=== PATIENT | female | born 1960 | race Caucasian/White ===

== ENCOUNTER 2023-11-18 07:23 | Emergency (ER) | payer MEDICAID, OTHER, SELFPAY ==
--- NOTE | 2023-11-18 | ECG_ITS ---
Test Reason : chest pain Blood Pressure : / mmHG Vent. Rate : 093 BPM Atrial Rate : 093 BPM P-R Int : 164 ms QRS Dur : 072 ms QT Int : 372 ms P-R-T Axes : 041 041 051 degrees QTc Int : 462 ms Sinus rhythm with frequent Premature ventricular complexes in a pattern of bigeminy Otherwise normal ECG No previous ECGs available Referred By: Generic ED Physician Electronically Signed By:Kike Salinas
--- NOTE | ~2023-11-18 | CT_ITS ---
EXAMINATION: CT HEAD WITHOUT CONTRAST CLINICAL INFORMATION: Headache COMPARISON: None available. TECHNIQUE: Contiguous axial imaging was performed from the skull base to vertex without intravenous administration of contrast. This CT examination was performed using dose optimization techniques as appropriate, variously including the following: *Automated exposure control *Adjustment of mA and/or kV according to patient size (this includes techniques or standardized protocols for targeted exams where dose is matched to indication/reason for exam; i.e. extremities or head) *Use of iterative reconstruction technique DLP: 680 mGy-cm FINDINGS: Ventricles, sulci and cisterns are dilated. Bilateral frontal deep white matters show abnormal decrease in attenuation, extending to anterior left external capsule. There is no midline shift, no abnormal intra- or extra- axial fluid accumulation. Begum and white matter differentiation is normal. Bone window images show no evidence of skull fracture. CT/CT head/brain wo IV con IMPRESSION: 1. Mild age related cerebral atrophy and bilateral frontal ischemic white matter disease compatible with microangiopathy. 2. No intracranial hemorrhage or skull fracture is seen. 3. No evidence of space occupying lesion could be found. 4. The current plain CT scan of the brain shows no diagnostic evidence of acute cerebral infarction.
--- NOTE | ~2023-11-18 | XR_ITS ---
EXAMINATION: XR CHEST CLINICAL INFORMATION: Chest pain. COMPARISON: None available. TECHNIQUE: 2 views of the chest were obtained. FINDINGS: The lungs are well expanded. There is diffuse reticular interstitial pattern. Cardiac silhouette appears enlarged. No pleural effusion. Thoracic aorta is tortuous and ectatic. There is prominence of the paratracheal soft tissues. Age-indeterminate compression fracture of T12. XR/XR chest 2V IMPRESSION: Diffuse interstitial prominence. This may be on a chronic basis. Prominence of the paratracheal soft tissues. No prior studies available for comparison. Consider follow-up imaging. Age-indeterminate compression fracture of T12.
[2023-11-18 07:44] VITALS: BP 156/72; PULSE 83; RESP 18; TEMP 36.8; BMI 35.5
[2023-11-18 07:44] LABS: MANUAL DIFF FLAG NO
--- NOTE | 2023-11-18 07:44 | ED_ITS ---
HPI - Chest Pain General Chief Complaint: Chest Pain Stated Complaint: chest pressure high bp Time Seen by Provider: 11/18/23 07:38 Source: patient, family and telegraph plant maintainer Mode of arrival: ambulatory Limitations: no limitations and language barrier History of Present Illness HPI narrative: 63-year-old female Serbian speaking presents to the emergency department with multiple complaints. Patient states that she is here because she has headache and chest pain that she has blood pressure and she has noticed her blood pressure has been elevated as well as some episodes of dizziness she has had some trouble walking when she has her blood pressure elevated she feels dizzy when her blood pressure is elevated and her headache comes on when she has this. She has been taking ibuprofen with relief. She states [place] been in the [place] 2 [place] unable to establish with a doctor she denies any falls injuries she denies use chills cough shortness of breath she has been eating and drinking normally Related Data Allergies Allergy/AdvReac Type Severity Reaction Status Date / Time none AdvReac Unknown Itchy Eyes Uncoded 11/18/23 07:45 Review of Systems 2 Review of Systems: Review of systems: hypervigilan polypositive review of symptoms General: Patient denies any fever chills recent illness - fall 4 months ago Musculoskeletal: Denies back pain or body aches or other injuries HEENT: intermittent dizziness, headache, denies runny nose, ear pain Respiratory: denies shortness of breath, cough Cardiovascular: chest pain or palpitations : denies dysuria, frequency Abdomen: no nausea vomiting denies abdominal pain Extremities: no swelling, no pain Skin: no diaphoresis Yes all other systems are reviewed and are negative [facility] Social History Social History Smoked in Last 30 Days: No Use of substances other than those prescribed or required for medical reasons: No Advance Directives: No Do you have a plan to hurt others: No Plan Patient : No Physical Exam 2 Vital Signs: Vital Signs: Last Vital Signs Temp 98.2 F 11/18/23 07:44 Pulse 83 11/18/23 07:44 Resp 18 11/18/23 07:44 BP 156/72 H 11/18/23 07:44 O2 Del Method Room Air 11/18/23 07:44 BMI result Body Mass Index 35.5 Neurological exam: CN II- XII tested. Patient is alert and oriented to person place and time. Patient has no dysphagia or dysarthia, denies good vision in all four vision gimenez no nystagmus on exam, good strength to upper and lower extremities with normal reflexes to brachioradialis, wrist, patella and achilles. Negative romberg, good finger to nose and heel to miranda. General: Well-appearing well-nourished in no signs of distress HEENT: Normocephalic atraumatic Neck: No signs of JVD, no masses no tenderness or lymphadenopathy Cardiovascular: Regular rate and rhythm Respiratory: Clear to auscultation bilaterally Abdomen: Soft nontender no masses Extremities: Normal pedal pulses no signs of edema Skin: Dry warm no rashes Back: No tenderness full ROM NIH Stroke Scale Internal: Initial- Upon Arrival Level of Consciousness: Alert Level of Consciousness Questions: Answers both questions correctly Level of Consciousness Commands: Performs both tasks correctly Best Gaze: Normal Visual: No visual loss Facial Palsy: Normal Motor Arm (Right): No drift Motor Arm (Left): No drift Motor Leg (Right): No drift Motor Leg (Left): No drift Limb Ataxia: Absent Sensory: Normal Best Language: No aphasia Dysarthia: Normal Extinction and Inattention: No abnormality Score: 0 Course Course Course Narrative: CT head labs and x-ray were all unremarkable. Patient looks well she is complaining some chills at this time which I think is likely related to the IV fluids that she has received. I did explain this to the patient through telegraph plant maintainer as well as talked to her daughter who was called on the phone. I do feel comfortable discharging the patient home I will give her a list of primary care doctors for follow-up they are happy with the plan to go home. Medications Administered Discontinued Medications Generic Name Dose Route Start Last Admin Trade Name Mia PRN Reason Stop Dose Admin Aspirin 324 mg 11/18/23 08:42 11/18/23 09:20 Aspirin 81 Mg Tab.Chew PO 11/18/23 08:43 324 mg ONCE ONE Administration Diphenhydramine HCl 25 mg 11/18/23 08:42 11/18/23 09:17 Diphenhydramine Hcl 50 Mg/Ml Vial IVPUSH 11/18/23 08:43 25 mg ONCE ONE Administration Sodium Chloride 1,000 mls @ 999 mls/hr 11/18/23 08:45 11/18/23 09:15 Ns IV 11/18/23 09:45 999 mls/hr .Q1H1M JALYN Administration Metoclopramide HCl 10 mg 11/18/23 08:42 11/18/23 09:18 Metoclopramide Hcl 10 Mg/2 Ml Vial IVPUSH 11/18/23 08:43 10 mg ONCE ONE Administration Prednisone 60 mg 11/18/23 08:42 11/18/23 09:20 Prednisone 20 Mg Tablet PO 11/18/23 08:43 60 mg ONCE ONE Administration Medical Decision Making Medical Decision Making [facility] Narrative: Patient has been getting her medications from [facility] the pain is reproduced her chest wall she may or may not have a headache at this time I will give patient aspirin prednisone fluids Reglan and Benadryl. I do feel like a lot of these are chronic problems in her blood pressure has been elevated for some time she states the chest pain has been going on for a long time as well but got worse over last 24 hours I did discuss with since it is reproducible this could be as simple as chest wall pain for that reason I did give the prednisone to help with a costochondritis type pain. Aspirin fluids and Reglan should help with her headache. Blood pressure is managed well at this time. While she did complain of dizziness and trouble walking she has a completely normal neuro exam of seen her ambulate without any issue Differential Diagnosis Differential Diagnoses: The differential diagnosis associated with the presentation includes Chest pain headache migraines ACS chest wall pain dehydration electrolyte abnormality medication noncompliance hypertension Admission/Observation Consideration of admission/observation: Escalation of care including admission/observation considered Lab Data [facility] Lab Attestation statement: I reviewed the patient's lab results. 11/18/23 07:40 11/18/23 07:40 Labs: Lab Results 11/18/23 Range/Units 07:40 WBC 9.8 (4.8-10.8) X10*3/uL RBC 4.35 (4.20-5.50) X10*6/uL Hgb 13.4 (12.0-16.0) g/dl Hct 39.8 (37.0-47.0) % MCV 91.5 (80.0-98.0) fL MCH 30.8 (27.0-33.0) pg MCHC 33.7 (31.0-35.0) g/dl RDW 12.5 (11.0-16.0) % Plt Count 158 L (160-400) X10*3/uL MPV 12.3 (9.4-12.3) fL Immature Gran % (Auto) 0.5 H (0.0-0.4) % Neut % (Auto) 66.5 (45-73) % Lymph % (Auto) 25.4 (20-40) % Talbot % (Auto) 6.3 (2-11) % Eos % (Auto) 1.0 (0-4) % Baso % (Auto) 0.3 (0-2) % Lymph # (Auto) 2.5 (1.2-4.9) X10*3/uL Talbot # (Auto) 0.6 (0.1-1.2) X10*3/uL Eos # (Auto) 0.1 (0.0-0.4) X10*3/uL Baso # (Auto) 0.0 (0.0-0.2) X10*3/uL Abs Immat Gran (auto) 0.05 H (0.00-0.03) X10*3/uL Absolute Neuts (auto) 6.5 (2.0-8.3) x10*3/uL Absolute Nucleated RBC 0.000 (0.0-0.012) X10*3/uL Nucleated RBC % (auto) 0.0 (0.0-0.2) /100WBC Sodium 141 (135-145) mmol/L Potassium 4.0 (3.3-5.1) mmol/L Chloride 106 (96-108) mmol/L Carbon Dioxide 27 (22-29) mmol/L Anion Gap 12 (12-20) BUN 16 (9-16) mg/dL Creatinine 0.82 (0.5-1.4) mg/dL Estim Creat Clear Calc 71.4 Estimated GFR > 60 Random Glucose 106 (60-115) mg/dL Calcium 9.4 (8.4-10.2) mg/dL Total Bilirubin 0.4 (0.0-1.0) mg/dL AST 15 (5-31) U/L ALT 14 (0-31) U/L Alkaline Phosphatase 114 (39-117) U/L Troponin I High Sens < 2.7 (<3.5-17.0) ng/L Total Protein 7.7 (6.5-8.0) g/dL Albumin 4.1 (3.5-5.0) g/dL Independent Interpretation I performed an independent interpretation of an: EKG, Plain X-Ray and CT Scan Interpretation: Rate 93 bigeminy no previous previous for comparison no signs of ischemia interpreted by me Radiology Impression Discussion of test interpretation with radiology: I have reviewed the radiologist's reading. External Record Review External record reviewed: Inpatient record, Office record and Outpatient record Chronic Conditions Patient?s care impacted by: Hypertension Social Determinants Patient?s care significantly limited by Social Determinants of Health including: Inadequate housing and Other Social Determinant of Health Core Measures AMI core measures followed: Yes Scores Heart Score History: -0- slightly suspicious ECG: -0- normal Age: -1- >45 - <65 Risk factory: -1- 1 or 2 risk factors Troponin: -0- < or = normal limit Score: 2 Risk: 1.7% Discharge Plan Discharge Clinical Impression: Chest pain, Headache, Dizziness, Costalchondritis Patient Disposition: Home, Self-Care Instructions: Chest Pain (DC), Costochondritis (ED) Additional Instructions: You were seen today in emergency department for chest pain. As well as a headache. You had CT scan of the head x-ray of the chest and blood work which were all normal. I do think this could be related to her blood pressure. I do think it is worthwhile to call and establish with a doctor. If you have any other concerns please do not hesitate to come back to emergency department Print Language: Serbian
[2023-11-18 07:48] LABS: Basophils Percent Auto 0.3 % (0-2); Eosinophils Absolute Auto 0.1 X10*3/uL (0.0-0.4); Hematocrit 39.8 % (37.0-47.0); Hemoglobin 13.4 g/dl (12.0-16.0); Imm Gran Abs Auto 0.05 X10*3/uL (0.00-0.03); Imm Gran Pct Auto 0.5 % (0.0-0.4); Lymphocytes Absolute Auto 2.5 X10*3/uL (1.2-4.9); Lymphocytes Percent Auto 25.4 % (20-40); Mean Corpuscular HGB Conc 33.7 g/dl (31.0-35.0); Mean Corpuscular Hemoglobin 30.8 pg (27.0-33.0); Mean Corpuscular Volume 91.5 fL (80.0-98.0); Mean Platelet Volume 12.3 fL (9.4-12.3); Monocytes Absolute Auto 0.6 X10*3/uL (0.1-1.2); Monocytes Percent Auto 6.3 % (2-11); Neutrophils Absolute Auto 6.5 x10*3/uL (2.0-8.3); Neutrophils Percent Auto 66.5 % (45-73); Platelet Count 158 X10*3/uL (160-400); Red Blood Count 4.35 X10*6/uL (4.20-5.50); Red Cell Distribution Width 12.5 % (11.0-16.0); White Blood Count 9.8 X10*3/uL (4.8-10.8)
[2023-11-18 08:20] LABS: Alanine Aminotransferase 14 U/L (0-31); Albumin Level 4.1 g/dL (3.5-5.0); Alkaline Phosphatase 114 U/L (39-117); Anion Gap 12 (12-20); Aspartate Amino Transferase 15 U/L (5-31); Bilirubin Total 0.4 mg/dL (0.0-1.0); Blood Urea Nitrogen 16 mg/dL (9-16); Calcium 9.4 mg/dL (8.4-10.2); Carbon Dioxide 27 mmol/L (22-29); Chloride 106 mmol/L (96-108); Creatinine Clr Calc Pharmacy 71.4; Estimated Glomerular Filt Rate > 60; Glucose Random 106 mg/dL (60-115); Sodium 141 mmol/L (135-145); Total Protein 7.7 g/dL (6.5-8.0)
[2023-11-18 08:24] LABS: Troponin-I High Sensitivity < 2.7 ng/L (<3.5-17.0)
[2023-11-18] MEDS: 0.9 % Sodium Chloride 1,000 ML 999 ML IV (09:15)
[2023-11-18] MEDS: diphenhydrAMINE HCL 50 MG/ML VIAL 25 MG IVPUSH (09:17)
[2023-11-18] MEDS: Metoclopramide HCl 10 MG/2 ML VIAL IVPUSH (09:18)
[2023-11-18] MEDS: Aspirin 81 MG TAB.CHEW 324 MG PO (09:20)
[2023-11-18] MEDS: predniSONE 20 MG TABLET 60 MG PO (09:20)
[2023-11-18 10:42] VITALS: BP 150/86; PULSE 85; RESP 18; TEMP 36.8; O2SAT 98
== END 2023-11-18 10:43 | disposition home or self-care (01) ==
PROVIDERS: Emergency Provider Student in an Organized Health Care Education/Training Program
DX: R07.9 Chest pain, unspecified (principal); R51.9 Headache, unspecified; R42 Dizziness and giddiness; M94.0 Chondrocostal junction syndrome [Tietze]
CPT/HCPCS: 36415; 70450; 71046; 80053; 84484; 85025; 93005; 96374; 96375; 99284; 99285; J1200; J2765

== ENCOUNTER → 2023-11-18 07:28 | Outpatient (BNV) | payer SELFPAY | PROVIDERS: Emergency Provider Student in an Organized Health Care Education/Training Program; Visit Provider Internal Medicine Cardiovascular Disease | DX: R07.9 Chest pain, unspecified (principal) | CPT/HCPCS: 93010 ==

== ENCOUNTER 2024-11-18 23:28 | Inpatient (IN) | payer MEDICAID, OTHER, SELFPAY ==
--- NOTE | ~2024-11-18 | CT_ITS ---
CLINICAL HISTORY: facial droop, L arm drift CT head without contrast Comparison: CT/NM/SR - CT HEAD WITHOUT IV CONTRAST - 11/18/23 08:52 EDT Findings: No intra-axial mass, midline shift, hydrocephalus, or acute hemorrhage. Mild cerebral atrophy. Low attenuation in the periventricular white matter consistent with chronic small-vessel ischemic gliosis. There is no sinus or mastoid fluid. The orbits are within normal limits. There is no acute fracture. Wall calcifications of the carotid siphons present. IMPRESSION: 1. No acute intracranial findings. This document has been electronically signed by: Ermias Gonzalez MD on 11/19/2024 00:30:21
--- NOTE | ~2024-11-18 | MR_ITS ---
EXAMINATION: MR BRAIN WITHOUT IV CONTRAST HISTORY: CVA TECHNIQUE: Sagittal T1 and FLAIR, and axial T1, FLAIR, T2, gradient echo, and diffusion weighted MR images of the brain were obtained. COMPARISON: Correlation is made with an unenhanced head CT dated 11/19/2024. FINDINGS: The pituitary is normal in size. The cerebellar tonsils are normally located. There is diffuse prominence of the ventricular system and cortical sulci, consistent with atrophy. Periventricular and subcortical white matter hyperintensities are noted on the FLAIR and T2-weighted images which are nonspecific, but often seen in the setting of small vessel ischemic disease. There is a small focus of restricted diffusion in the right frontoparietal region consistent with an acute infarct. Additional punctate foci of restricted diffusion are noted in the right frontal and parietal lobes. There is no mass effect or midline shift. No intra or extra-axial fluid collections are identified. Normal vascular flow voids are noted in the basilar and carotid arteries. The visualized paranasal sinuses are clear. MR/MR head/brain wo con IMPRESSION: Small acute right frontoparietal infarcts. [facility] on 11/19/2024 at 1:37 PM. Electronically signed by: Tavo Garcia MD 11/19/2024 01:39 PM EDT
--- NOTE | ~2024-11-18 | US_ITS ---
EXAMINATION: BILATERAL CAROTID ULTRASOUND WITH DOPPLER HISTORY: possible CVA, ABN CTA COMPARISON: Correlation is made with a CT angiogram of the neck dated 11/19/2024. TECHNIQUE: Real time and Color and Spectral doppler ultrasonography of the carotid and vertebral arteries was performed in multiple planes. FINDINGS: There is a moderate amount of plaque proximal right internal carotid artery. No significant plaque is seen on the left. VERTEBRAL FLOW DIRECTION: Antegrade bilaterally. PEAK SYSTOLIC VELOCITIES (in cm/sec): RIGHT: CCA: Prox: 61.0 Dist: 61.5 ICA: Prox: 96.7 Mid: 108 Dist: 94.1 ICA/CCA Ratio: 1.76 ECA: 168 Peak ICA end diastolic velocity (EDV): 38.4 LEFT: CCA: Prox: 103 Dist: 93.2 ICA: Prox: 72.4 Mid: 114 Dist: 132 ICA/CCA Ratio: 1.28 ECA: 90.1 Peak ICA end diastolic velocity (EDV): 56.4 US/US carotid duplex BI IMPRESSION: Findings consistent with 50-79% stenosis of the right internal carotid artery. No significant stenosis is seen on the left. Electronically signed by: Tavo Garcia MD 11/20/2024 08:17 AM EDT
--- NOTE | ~2024-11-18 | CT_ITS ---
CLINICAL HISTORY: facial droop, L arm drift CT angiography head and neck with contrast. 3D Postprocessing. Comparison: None provided Findings: There is motion artifact in the region of the carotid bulbs. Bilateral internal carotid arteries have a retropharyngeal course. The right cervical carotid artery is patent. Dense calcification of the right carotid bulb is present with resultant severestenosis which is not well evaluated due to motion artifact. Left cervical carotid artery is patent. No stenosis of the left internal carotid artery. Bilateral vertebral arteries are widely patent without stenosis. Intracranial arteries are patent. No aneurysm, dissection, hemodynamically significant stenoses, or occlusion. No abnormal intracranial enhancement. The visualized thyroid gland is unremarkable. No cervical mass or fluid collection. Lung apices clear. No acute fracture. IMPRESSION: 1. No large vessel occlusion of the intracranial arteries. 2. Severe stenosis of the right internal carotid artery at the bulb secondary to calcified plaque. Measurement of the stenosis is difficult to estimate due to patient motion. This document has been electronically signed by: Erimas Gonzalez MD on 11/19/2024 00:59:04
[2024-11-18 23:50] VITALS: BP 142/70; PULSE 83; RESP 20; TEMP 36.6; O2SAT 95; BMI 35.8
[2024-11-19] VITALS (9 sets, daily range): BP systolic 104–135; BP diastolic 57–80; PULSE 71–89; RESP 13–25; TEMP 36.3–36.8; O2SAT 90–98; BMI 36.1
--- NOTE | 2024-11-19 00:04 | ED_ITS ---
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 Akosua Byrd HPI Narrative: 64-year-old female with history of hypertension presenting with facial droop, left arm weakness and numbness ongoing since about 5:00 p.m. last night. History is given by patient's son who is at bedside and is assisting interpretation of the Montserratian language. Patient does not speak Togolese. Reports around 5:00 p.m. symptoms began. No associated headache. No recent illness. Takes aspirin daily. Unclear why. She does have high blood pressure and reportedly takes lisinopril. Unable to obtain further information at this time. Stroke workup initiated from triage. Related Data Allergies Allergy/AdvReac Type Severity Reaction Status Date / Time No Known Allergies Allergy Verified 11/18/24 23:51 Review of Systems 2 Review of Systems: as per HPI, full review of systems performed and negative but for the above mentioned pertinent positives and negatives. [facility]LY [facility] Past Medical History Source: obtained from family (HTN) Medical History (Updated 11/19/24 @ 04:34 by Akosua Byrd DO) Anemia Thrombocytopenia Tachycardia Chest pain T12 compression fracture Fall Osteoporosis Tobacco dependence Obesity HLD (hyperlipidemia) HTN (hypertension) Social History Social History (Updated 11/19/24 @ 04:02 by [facility] Patient Tobacco Use Status: Current everyday Tobacco user Tobacco use type: Cigarette Cigarettes Per Day: 5 Smoked in Last 30 Days: Yes Use of substances other than those prescribed or required for medical reasons: No Advance Directives: No Advance Directives Information Provided: No Patient : No Physical Exam 2 Exam: Exam: GENERAL: Chronically ill-appearing, no acute distress. SKIN: Normal skin color for ethnicity, warm, dry, no rashes noted. HEENT: Normocephalic, atraumatic, no stridor, posterior oropharynx nonerythematous, EOMI. NECK: Soft, supple, full ROM, midline structures nontender, no step-offs, no deformities, no lymphadenopathy. CHEST: Heart regular rate and rhythm, no murmurs, symmetric chest rise and fall. PULMONARY: Clear to auscultation bilaterally, no labored breathing, no wheezes/rhales/ rhonchi. ABDOMINAL: Soft, nondistended, nontender, positive bowel sounds in all quadrants. : Deferred. MUSCULOSKELETAL: Normal tone, full range of motion, no deformities, no peripheral edema. NEURO: Alert and oriented to person, slight flattening of the nasolabial fold on the left, no eyebrow involvement, left arm drift, no right-sided deficits PSYCHIATRIC: Flat affect, fluid speech, appropriate demeanor. Vital Signs: Vital Signs: Last Vital Signs Temp 97.4 F 11/19/24 01:15 Pulse 87 11/19/24 02:31 Resp 16 11/19/24 02:31 BP 125/62 11/19/24 02:31 Pulse Ox 95 11/19/24 02:31 O2 Del Method Room Air 11/19/24 02:31 BMI result Body Mass Index 35.8 Medications Administered Discontinued Medications Generic Name Dose Route Start Last Admin Trade Name Freq PRN Reason Stop Dose Admin Lactated Ringer's 1,000 mls @ 999 mls/hr 11/19/24 02:21 11/19/24 04:29 Lr IV 11/19/24 03:21 Infused .Q1H1M ONE Infusion Iohexol 70 ml 11/19/24 00:23 11/19/24 00:23 Iohexol 350 Mg/Ml 100 Ml Infus..Btl IV 11/19/24 00:24 70 ml ONCE ONE Administration Medical Decision Making Medical Decision Making MDM Narrative: 64-year-old female with history of hypertension presenting with a facial droop, left arm numbness and weakness ongoing since 5:00 p.m. this evening. Differential diagnosis includes CVA, TIA, electrolyte abnormality, ACS, malignant hypertension, Burns's palsy, among others. Broad-based workup initiated. 12:05 AM 11/19/2024 (Dr. Akosua Byrd, D.O.) patient arrives to the emergency department with left-sided facial droop, left arm drift and numbness ongoing since 5:00 p.m. this afternoon. Family waited to bring her to the hospital because they ?thought her symptoms would improve?. She denies headache. Treating as probable CVA with head CT, stroke workup. 12:39 AM 11/19/2024 (Zee SepulvedaO.) dry head CT negative for bleed. Awaiting CTA result. 1:32 AM 11/19/2024 (Dr. Akosua Byrd D.O.) CTA is negative for LVO. Case discussed with hospitalist who agrees with the plan for admission for CVA rule out, MRI and Neurology consult. Patient remains hemodynamically stable and resting comfortably. Discussed with the patient plan for admission and she agrees with this. Her daughter helped to translate over the phone via of video chat. Her daughter is a nurse and felt comfortable with translation. Differential Diagnosis Differential Diagnoses: The differential diagnosis associated with the presentation includes (As above) Admission/Observation Consideration of admission/observation: Escalation of care including admission/observation considered Consult Healthcare Provider Management of the patient was discussed with: Hospitalist Lab Data MDM Lab Attestation statement: I reviewed the patient's lab results. 11/19/24 00:30 11/19/24 00:30 Labs: Lab Results 11/19/24 11/19/24 11/19/24 Range/Units 00:30 00:44 01:05 WBC 8.8 (4.8-10.8) X10*3/uL RBC 3.36 L D (4.20-5.50) X10*6/uL Hgb 10.7 L D (12.0-16.0) g/dl Hct 30.1 L D (37.0-47.0) % MCV 89.6 (80.0-98.0) fL MCH 31.8 (27.0-33.0) pg MCHC 35.5 H (31.0-35.0) g/dl RDW 12.7 (11.0-16.0) % Plt Count 145 L (160-400) X10*3/uL MPV 12.6 H (9.4-12.3) fL Immature Gran % (Auto) 0.5 H (0.0-0.4) % Neut % (Auto) 63.9 (45-73) % Lymph % (Auto) 28.5 (20-40) % [place] % (Auto) 5.9 (2-11) % Eos % (Auto) 1.0 (0-4) % Baso % (Auto) 0.2 (0-2) % Lymph # (Auto) 2.5 (1.2-4.9) X10*3/uL [place] # (Auto) 0.5 (0.1-1.2) X10*3/uL Eos # (Auto) 0.1 (0.0-0.4) X10*3/uL Baso # (Auto) 0.0 (0.0-0.2) X10*3/uL Abs Immat Gran (auto) 0.04 H (0.00-0.03) X10*3/uL Absolute Neuts (auto) 5.6 (2.0-8.3) x10*3/uL Absolute Nucleated RBC 0.000 (0.0-0.012) X10*3/uL Nucleated RBC % (auto) 0.0 (0.0-0.2) /100WBC PT 12.9 H (10.9-12.4) SEC Whole Blood PT 13.4 (11.1-13.5) sec INR 1.1 (0.9-1.1) Whole Blood INR 1.1 (0.9-1.1) Sodium 142 (135-145) mmol/L Potassium 3.9 (3.3-5.1) mmol/L Chloride 110 H (96-108) mmol/L Carbon Dioxide 22 (22-29) mmol/L Anion Gap 14 (12-20) BUN 28 H (9-16) mg/dL Creatinine 0.97 (0.5-1.4) mg/dL Estim Creat Clear Calc 53.0 Estimated GFR 58 POC Glucose 97 (60-115) mg/dL Random Glucose 106 (60-115) mg/dL Calcium 8.6 D (8.4-10.2) mg/dL Magnesium 2.2 (1.6-2.6) mg/dL Troponin I High Sens < 2.7 (<3.5-17.0) ng/L TSH 2.92 (0.32-4.0) uIU/mL Free T4 1.05 (0.71-1.85) ng/dL Urine Color Urine Appearance Urine pH (5.0-9.0) Ur Specific [place] (1.005-1.025) Urine Protein (Neg-Trace) mg/dL Urine Glucose (UA) (Negative) mg/dL Urine Ketones (Negative) mg/dL Urine Blood (Negative) Urine Nitrite (Negative) Ur Leukocyte Esterase (Negative) 11/19/24 Range/Units 02:33 WBC (4.8-10.8) X10*3/uL RBC (4.20-5.50) X10*6/uL Hgb (12.0-16.0) g/dl Hct (37.0-47.0) % MCV (80.0-98.0) fL MCH (27.0-33.0) pg MCHC (31.0-35.0) g/dl RDW (11.0-16.0) % Plt Count (160-400) X10*3/uL MPV (9.4-12.3) fL Immature Gran % (Auto) (0.0-0.4) % Neut % (Auto) (45-73) % Lymph % (Auto) (20-40) % [place] % (Auto) (2-11) % Eos % (Auto) (0-4) % Baso % (Auto) (0-2) % Lymph # (Auto) (1.2-4.9) X10*3/uL [place] # (Auto) (0.1-1.2) X10*3/uL Eos # (Auto) (0.0-0.4) X10*3/uL Baso # (Auto) (0.0-0.2) X10*3/uL Abs Immat Gran (auto) (0.00-0.03) X10*3/uL Absolute Neuts (auto) (2.0-8.3) x10*3/uL Absolute Nucleated RBC (0.0-0.012) X10*3/uL Nucleated RBC % (auto) (0.0-0.2) /100WBC PT (10.9-12.4) SEC Whole Blood PT (11.1-13.5) sec INR (0.9-1.1) Whole Blood INR (0.9-1.1) Sodium (135-145) mmol/L Potassium (3.3-5.1) mmol/L Chloride (96-108) mmol/L Carbon Dioxide (22-29) mmol/L Anion Gap (12-20) BUN (9-16) mg/dL Creatinine (0.5-1.4) mg/dL Estim Creat Clear Calc Estimated GFR POC Glucose (60-115) mg/dL Random Glucose (60-115) mg/dL Calcium (8.4-10.2) mg/dL Magnesium (1.6-2.6) mg/dL Troponin I High Sens (<3.5-17.0) ng/L TSH (0.32-4.0) uIU/mL Free T4 (0.71-1.85) ng/dL Urine Color Yellow Urine Appearance Clear Urine pH 7.0 (5.0-9.0) Ur Specific [place] >= 1.030 H (1.005-1.025) Urine Protein Negative (Neg-Trace) mg/dL Urine Glucose (UA) Negative (Negative) mg/dL Urine Ketones Negative (Negative) mg/dL Urine Blood Negative (Negative) Urine Nitrite Negative (Negative) Ur Leukocyte Esterase Negative (Negative) Independent Interpretation I performed an independent interpretation of an: EKG Interpretation: My independent interpretation of the ECG reveals normal sinus rhythm frequent PVCs with rate of 84, normal axis, normal intervals, no ST elevations or depressions to suggest ischemic changes, relatively unchanged from previous on 11/18/2023. Radiology Impression Discussion of test interpretation with radiology: I have reviewed the radiologist's reading. Radiologist Impression: CT head without contrast Comparison: CT/CT/SR - CT HEAD WITHOUT IV CONTRAST - 11/18/23 08:52 EDT Findings: No intra-axial mass, midline shift, hydrocephalus, or acute hemorrhage. Mild cerebral atrophy. Low attenuation in the periventricular white matter consistent with chronic small-vessel ischemic gliosis. There is no sinus or mastoid fluid. The orbits are within normal limits. There is no acute fracture. Wall calcifications of the carotid siphons present. IMPRESSION: 1. No acute intracranial findings. This document has been electronically signed by: Ermias Gonzalez MD on 11/19/2024 00:30:21 Independent Historian Clinical information obtained from an independent historian. History obtained from or confirmed by: Other (Son, daughter) Chronic Conditions Patient?s care impacted by: Hypertension NIH Stroke Scale Internal: Initial- Upon Arrival Time: 00:05 Level of Consciousness: Alert Level of Consciousness Questions: Answers both questions correctly Level of Consciousness Commands: Performs both tasks correctly Best Gaze: Normal Visual: No visual loss Facial Palsy: Minor paralyis Motor Arm (Right): No drift Motor Arm (Left): Drift Motor Leg (Right): No drift Motor Leg (Left): Drift Limb Ataxia: Absent Sensory: Mild to moderate sensory loss Best Language: No aphasia Dysarthia: Normal Extinction and Inattention: No abnormality Score: 4 Discharge Plan Discharge Clinical Impression: Acute left-sided muscle weakness, Facial droop, Acute dehydration Patient Disposition: Admitted As Inpatient
[2024-11-19] MEDS: iohexoL 350 MG/ML 100 ML INFUS..BTL 70 ML IV (00:23)
--- OUTSIDE RECORDS SUMMARY | 2024-11-19 00:30 | XMS_ITS | Encounter Summary ---
Author Organization [employer] Address [address] [place] [address] Care Team Providers Care Building Code Administrator Name Role Phone Unavailable Primary Care Provider Unavailabl e Encounter Details Date Type Department Care Team (Late st Contact Info) Description 04/29/2023 Telephone [facility] [address] [place] [address] Igor Tarango, DDS [address] [place] [address] Social History Tobacco Use Types Packs/Day Years Used Date Smoking Tobacco: Never Assessed Comments Unknown Sex and Gender Information Value Date Recorded Sex Assigned at Female 12/31/2022 8:19 AM EDT Legal Sex Female 8:12 AM EDT Gender Identity Female 12/31/2022 8:19 AM EDT Sexual Orientation Choose not to disclose 2022 8:19 AM EDT documented as of this encounter Miscellaneous Notes * Telephone Encounter - Debbi Aguilera - 04/29/2023 3:23 PM EST Vitally called no model was send to make the dentures package was empty can u call them thank u ladies happy Tuesday . documented in this encounter Plan of Treatment Not on file documented as of this encounter Visit Diagnoses Not on filedocumented in this encounter
--- OUTSIDE RECORDS SUMMARY | 2024-11-19 00:30 | XMS_ITS | Clinical Summary ---
Author Organization [facility] Address [address] [place] [address] Phone Care Team Providers Care Entertainment Agent Name Role Phone Tanya Shields Primary Care Provider Encounters Date Type Department Care Team Description 10/16/2024 8:40 AM EDT - 10/16/2024 11:59 PM EDT Hospital Encounter [facility] Bone Density [address] [place] [address] Asymptomatic menopausal state Discharge Disposition: Home or Self Care 10/16/2024 8:30 AM EDT - 10/16/2024 11:59 PM EDT [facility] [address] [address] Encounter for screening mammogram for malignant neoplasm of breast Discharge Disposition: Home or Self Care from Last 3 Months Social History Tobacco Use Types Packs/Day Years Used Date Smoking Tobacco: Never Assessed Comments No Sex and Gender Information Value Date Recorded Sex Assigned at Not on file Legal Sex Female 11:12 PM EST Gender Identity Not on file Sexual Orientation Not on file Obstetrics History Para Term AB IAB SAB Ectopic Multiple Livin g Live Births 4 Plan of Treatment Health Maintenance Due Date Last Done Comments Cervical Cancer Screening: P ap Smear 01/19/1980 Colorectal Cancer Screening: Colonoscopy 03/21/2022 Medicare Annual Wellness Visit 03/21/2022 Social Influencers of Health Screening 03/21/2022 COVID-19 Vaccine (2023-2 5 season) 2023 Falls Risk Assessment 01/19/2024 Depression Screening 04/18/2024 Influenza Vaccine (#1) 2024 Hypertension/CHF/CAD Annual BMP Blood Test 08/15/2025 08/15/2024 Breast Cancer Screening 10/16/2026 10/16/2024 Cholesterol Screening (Lipid Panel) 08/15/2029 08/15/2024, 2024 DTaP,Tdap,and Td Vaccines (2 - Td or Tdap) 11/25/2031 11/24/2021 RSV Immunization Adult Patients (1 - 1-dose 75+ series) 2034 Osteoporosis Screening (Bone Density Screening) 10/16/2034 10/16/2024 Hepatitis B Vaccines Completed 06/20/2022, 12/28/2021, 11/24/2021 Pneumococcal Vaccine: 50+ Years Completed 06/12/2024 Hepatitis C Screening Completed 08/15/2024 Zoster Vaccines Completed 08/15/2024, 06/12/2024 HIB Vaccines Aged Out No longer eligi ble based on patient's age to complete this topic HPV Vaccines Aged Out No longer eligi ble based on patient's age to complete this topic Hepatitis A Vaccines Aged Out No long er eligible based on patient's age to complete this topic IPV Vaccines Aged Out No longer eligi ble based on patient's age to complete this topic MMR Vaccines Aged Out No longer eligi ble based on patient's age to complete this topic Meningococcal ACWY Vaccine Aged Out N o longer eligible based on patient's age to complete this topic Meningococcal B Vaccine Aged Out No l onger eligible based on patient's age to complete this topic RSV Immunization Patients Under 20 months Aged Out No longer eligible b ased on patient's age to complete this topic Varicella Vaccines Aged Out No longer eligible based on patient's age to complete this topic Procedures Procedure Name Priority Date/Time Associated Diagnosis Comments MG MAMMO DIGITAL SCREENING W EDUAR BILAT Routine 10/16/2024 9:30 AM EDT Encounter for screening mammogram for malignant neoplasm of breast BD BONE DENSITY DXA AXIAL SKELETON Routine 10/16/2024 9:30 AM EDT Asymptomatic menopausal state from Last 3 Months Results * MG Mammo Digital Screening w Eduar bilat (10/16/2024 9:30 AM EDT) Anatomical Region Laterality Modality Breast Bilateral Mammography 10/16/2024 9:19 AM EDT Impressions 10/16/2024 9:24 AM EDT No mammographic evidence of malignancy. A negative mammogram in the presence of a clinically suspicious palpable abnormality does not preclude the possibility of malignancy or alter the indications for biopsy. PQRI CPT II 3342F Code 21428, 82432 PQRI 225 CPT II 7025F TISSUE DENSITY: The breasts are heterogeneously dense, which may obscure small masses. (BI-RADS category C) IMPRESSION: Benign. BI-RADS CATEGORY: 2 - BENIGN RECOMMENDATION: Screening bilateral mammogram is recommended in 1 year. Mammo Location: [facility], [address] [place] [address] -------- FINAL REPORT -------- Dictated By: Fredis Hernandez Dictated Date: 10/16/2024 09:19 ET Assigned Physician: Fredis Hernandez Reviewed and Electronically Signed By: Fredis Hernandez Signed Date: 10/16/2024 09:24 ET Workstation ID: [id number] Transcribed By: Self Edit Transcribed Date: 10/16/2024 09:19 ET Narrative 10/16/2024 9:24 AM EDT CLINICAL: The patient is a 64 years Female presenting for baseline screening mammography. COMPARISON: None TECHNIQUE: Full-field digital mammography of the breasts bilaterally consisting of tomosynthesis in MLO and CC projection is performed in the [employer] 2000-D unit. Computer aided detection utilizing the iCAD system was utilized. FINDINGS: The breasts are seen to be composed of a combination of fatty and moderately dense fibroglandular elements. Bilateral punctate calcifications are of benign appearance. There is no suspicious cluster of microcalcifications, mass, or area of architectural distortion. There is no skin thickening or nipple retraction. Procedure Note Fredis Hernandez MD - 10/16/2024 CLINICAL: The patient is a 64 years Female presenting for baselinescreening mammography. COMPARISON: None TECHNIQUE: Full-field digital mammography of the breasts bilaterallyconsisting of tomosynthesis in MLO and CC projection is performed in theGE Senographe 2000-D unit. Computer aided detection utilizing the MetaChannelsystem was utilized. FINDINGS: The breasts are seen to be composed of a combination of fattyand moderately dense fibroglandular elements. Bilateral punctatecalcifications are of benign appearance. There is no suspicious clusterof microcalcifications, mass, or area of architectural distortion. Thereis no skin thickening or nipple retraction. IMPRESSION: No mammographic evidence of malignancy. A negative mammogram in the presence of a clinically suspicious palpableabnormality does not preclude the possibility of malignancy or alter theindications for biopsy. PQRI CPT II 3342F Code 00922, 20801 PQRI 225 CPT II 7025F TISSUE DENSITY: The breasts are heterogeneously dense, which may obscuresmall masses. (BI-RADS category C) IMPRESSION: Benign. BI-RADS CATEGORY: 2 - BENIGN RECOMMENDATION: Screening bilateral mammogram is recommended in 1 year. Mammo Location: [facility], [address] [place] [address] -------- FINAL REPORT -------- Dictated By: Fredis Hernandez Dictated Date: 10/16/2024 09:19 ET Assigned Physician: Fredis Hernandez Reviewed and Electronically Signed By: Fredis Hernandez Signed Date: 10/16/2024 09:24 ET Workstation ID: [id number] Transcribed By: Self Edit Transcribed Date: 10/16/2024 09:19 ET us Tanya Shields PA IMG BI PROCEDURES Chani l Result * BD Bone Density DXA Axial Skeleton (10/16/2024 9:30 AM EDT) Anatomical Region Laterality Modality Wrist, Hip, L-spine Bone Densito metry 10/16/2024 9:33 AM EDT Impressions 10/16/2024 9:34 AM EDT 1. Osteoporosis. 2. FRAX analysis yields a 10-year probability of major osteoporotic fracture of 7.4% and a 10-year probability of hip fracture of 0.5%. Code 97521 -------- FINAL REPORT -------- Dictated By: Fredis Hernandez Dictated Date: 10/16/2024 09:33 ET Assigned Physician: Fredis Hernandez Reviewed and Electronically Signed By: Fredis Hernandez Signed Date: 10/16/2024 09:34 ET Workstation ID: [id number] Transcribed By: Self Edit Transcribed Date: 10/16/2024 09:33 ET Narrative 10/16/2024 9:34 AM EDT HISTORY: The patient is a 64-year-old postmenopausal female with clinical concern for metabolic bone disease. FINDINGS: Dual energy x-ray absorptiometry of the lumbar spine and femurs is performed. The mean bone mineral density at L1-L4 is 0.846 gm/cm2 which is 72% of that of young normals and 80% of that of age matched controls. This yields a T-score of -2.8 and a Z-score of -1.7 which is diagnostic of osteoporosis. The mean bone mineral density of the femurs bilaterally is 0.960 gm/cm2 which is 95% of that of young normals and 106% of that of age matched controls. This yields a T-score of -0.4 and a Z-score of 0.5 and there is therefore no evidence of osteoporosis or osteopenia here. However, the T-score of the left femoral neck is -1.2 which is diagnostic of osteopenia. Procedure Note Fredis Hernandez MD - 10/16/2024 HISTORY: The patient is a 64-year-old postmenopausal female with clinicalconcern for metabolic bone disease. FINDINGS: Dual energy x-ray absorptiometry of the lumbar spine and femursis performed. The mean bone mineral density at L1-L4 is 0.846 gm/cm2 whichis 72% of that of young normals and 80% of that of age matched controls.This yields a T-score of -2.8 and a Z-score of -1.7 which is diagnostic ofosteoporosis. The mean bone mineral density of the femurs bilaterally is 0.960 gm/zn1mgdrp is 95% of that of young normals and 106% of that of age matchedcontrols. This yields a T-score of -0.4 and a Z-score of 0.5 and there istherefore no evidence of osteoporosis or osteopenia here. However, theT-score of the left femoral neck is -1.2 which is diagnostic ofosteopenia. IMPRESSION: 1. Osteoporosis. 2. FRAX analysis yields a 10-year probability of major osteoporoticfracture of 7.4% and a 10-year probability of hip fracture of 0.5%. Code 55697 -------- FINAL REPORT -------- Dictated By: Fredis Hernandez Dictated Date: 10/16/2024 09:33 ET Assigned Physician: Fredis Hernandez Reviewed and Electronically Signed By: Fredis Hernandez Signed Date: 10/16/2024 09:34 ET Workstation ID: [id number] Transcribed By: Self Edit Transcribed Date: 10/16/2024 09:33 ET us Tanya PERERA IMG DXA PROCEDURES Fin al Result from Last 3 Months Insurance [facility] MEDICARE ADVANTAGE Care Teams Entertainment Agent Relationship Specialty Start Date End Date Tanya Shields PA [facility] [place] [address] PCP - General 10/16/24
--- OUTSIDE RECORDS SUMMARY | 2024-11-19 00:30 | XMS_ITS | Clinical Summary ---
Author Organization [facility] Address [address] [place] [address] Care Team Providers Care Bilingual Medical Assistant Name Role Phone Tanya Shields PA-C Primary Care Provider [phone] Source Comments PLEASE NOTE, if this patient is a minor, it may be UNLAWFUL to discuss sensitive information that is contained in these records (such as FAMILY PLANNING, MENTAL HEALTH or SUBSTANCE ABUSE) with the minor patient's parent or other person without the patient's specific authorization.[facility] Allergies No known active allergies Medications aspirin [address] 1 Tablet into mouth, chew and swallow once daily Chew 3 tablets when experiencing high blood pressure. 90 Tablet 4 Active lisinopriL-hydro chlorothiazide 20-12.5 mg per tabletIndication s:Primary hypertension Take 1 Tablet by mouth once daily 90 Tablet 3 4 025 Active amLODIPine (NORVASC) 10 mg tablet Take 1 Tablet by mouth once daily 90 Tablet 3 4 025 Active rosuvastatin (CRESTOR) 10 mg tablet Take 1 Tablet by mouth nightly at bedtime 90 Tablet 3 4 025 Active bisoprolol (ZEBETA) 5 mg tablet Take 0.5 Tablets by mouth once daily 45 Tablet 3 5 026 Active calcium carbonate-vitami n D3 600 mg-10 mcg (400 unit) tabletIndication s:Osteoporosis without current pathological fracture, unspecified osteoporosis type Take 1 Tablet by mouth once daily. 90 Tablet 1 5 Active Active Problems Problem Noted Date Diagnosed Date Osteoporosis without current pathological fractu re 10/17/2024 Prediabetes 08/16/2024 Mixed hyperlipidemia 08/16/2024 Encounters Date Type Department Care Team Description 11/07/2024 2:40 PM EDT Office Visit [address] [phone] Keshav Sanders MD from Last 3 Months Immunizations Immunization Administration Dates Next Due ZOSTER VACCINE, RECOMBINANT (SHINGRIX) Social History Tobacco Use Types Packs/Day Years Used Date Smoking Tobacco: Every Day Cigarettes Passive Smoke Exposure: Current Tobacco Cessation:Ready to Q uit: Not Asked; Counseling Given: Yes Alcohol Use Standard Drinks/Week Comments Never 0 (1 standard drink = 0.6 oz pur e alcohol) Social Connections Answer Date Recorded Connectedness 0 12/31/2023 Financial Resource Strain Answer Date R ecorded Financial Resource Strain 0 2023 Stress Answer Date Recorded Stress 0 11/23/2023 Physical Activity Answer Date Recorded Physical Activity 0 11/23/2023 Food Insecurity Answer Date Recorded Food 0 01/12/2024 Transportation Needs Answer Date Record ed Transportation 0 11/23/2023 Housing Stability Answer Date Recorded Housing 0 11/23/2023 Safety and Environment Answer Date Sacha rded Safety 0 11/23/2023 Utilities Answer Date Recorded Utilities 0 11/23/2023 Employment Answer Date Recorded Stress 0 12/31/2023 Comments No Sex and Gender Information Value Date Recorded Sex Assigned at Female 11/23/2023 11:46 AM PDT Legal Sex Female 11:04 AM PDT Gender Identity Female 11/23/2023 11:46 AM PDT Sexual Orientation Straight 11/23/2023 11 :46 AM PDT Last Filed Vital Signs Vital Sign Reading Time Taken Comments Blood Pressure 100/60 11/07/2024 3:01 PM EDT Pulse 74 11/07/2024 3:01 PM EDT Temperature 36.7 C (98.1 F) 11/07/2024 3:01 PM EDT Respiratory Rate 16 11/07/2024 3:01 PM EDT Oxygen Saturation 98% 11/07/2024 3:01 PM EDT Inhaled Oxygen Concentration - - Weight 80.3 kg (177 lb) 11/07/2024 3:01 PM EDT Height 148 cm (4' 10.27 ) 03/07/2024 3:14 PM EST Body Mass Index 36.65 03/07/2024 3:14 PM EST Plan of Treatment Health Maintenance Due Date Last Done Comments Anxiety Screening 1960 CT Colonography 01/19/2004 Colonoscopy 01/19/2004 Colorectal Cancer Screening 01/19/2004 FIT/gFOBT 01/19/2004 Fecal DNA 01/19/2004 Flexible Sigmoidoscopy 01/19/2004 [id number] ( season) 2023 Falls Prevention 01/19/2024 Imm-Influenza (#1) 2024 Diabetes Screening 08/15/2025 08/15/2024, 0 08/15/2024, 2024 Lipid Screening 08/15/2025 08/15/2024, 2024 Tobacco Cessation Counseling (#1) 11/07/2025 Breast Cancer Screening (Mammogram) 10/16/202610/16, 10/16/2024 Imm-DTaP/Tdap/Td (2 - Td or Tdap) 11/25/2031 022 Imm-Pneumococcal 50+ Completed 06/12/2024 Alcohol and Drug Screen Completed 08/15/2024 Depression Annual Screen Completed 08/15/2024 HIV Screening Completed 08/15/2024 Hepatitis C Screening Completed 08/15/2024 Imm-Zoster, Recombinant Completed 08/15/2024, 06/12 Bone Density Screening Completed 10/16/2024, 2024 Procedures Procedure Name Priority Date/Time Associated Diagnosis Comments HISTORIC MAMMOGRAM 10/16/2024 3: 00 AM EDT DXA BONE DENSITY STUDY 1/> SITES AXIAL SKEL Routine 10/16/2024 3:00 AM EDT Postmenopause REFERRAL TO CARDIOLOGY Routine 08/23/2024 3:00 AM EDT Primary hypertension Dyspnea on exertion HIV 1/2 AG & AB W/RFLX (4TH GEN) Routine 08/15/2024 3:05 PM EDT Encounter to establish care HEPATITIS C AB W/RFLX HCV RNA, QT, RT PCR Routine 08/15/2024 3:05 PM EDT Encounter to establish care HGA1C W/EAG Routine 08/15/2024 3:05 PM EDT Frequent urination LIPIDS W RFLX TO DIRECT LDL Routine 08/15/2024 3:05 PM EDT Primary hypertension Dyslipidemia from Last 3 Months or Most Recently Relevant to Health Maintenance Results * HISTORIC MAMMOGRAM (10/16/2024 3:00 AM EDT) 10/16/2024 3:00 AM EDT Tanya Shields PA-C IM MAMMO Final Result * DXA BONE DENSITY STUDY 1/> SITES AXIAL SKEL (10/16/2024 3:00 AM EDT) 10/16/2024 3:00 AM EDT Tanya Shields PA-C IM DXA Final Result * REFERRAL TO CARDIOLOGY (08/23/2024 3:00 AM EDT) 08/23/2024 3:00 AM EDT Merline Xavier DIRECTOR INVESTOR RELATIONS-BC REFERRAL Final Res ult * HEPATITIS C AB W/RFLX HCV RNA, QT, RT PCR (08/15/2024 3:05 PM EDT) HEPATITIS C ANTIBODY NON-REACT ABDIEL NON-REACT ABDIEL [facility] Comment: HCV antibody was non-reactive. There is no laboratory evidence of HCV infection. In most cases, no further action is required. However, if recent HCV exposure is suspected, a test for HCV RNA (test code 19659) is suggested. For additional information please refer to http://education.Network18/faq/KZA27w4 (This link is being provided for informational/ educational purposes only.) Blood Blood / Unknown 08/15/2024 3 :05 PM EDT 08/15/2024 3:06 PM EDT Tanya Michaelradha PERERA-C LAB - BLOOD DRAW Final Resul t Performing Organization Address [facility] Co de Phone Number [facility] [address] [address], [employer] [address] [phone] * HIV 1/2 AG & AB W/RFLX (4TH GEN) (08/15/2024 3:05 PM EDT) HIV AG/AB, 4TH GEN NON-REAC TIVE NON-REAC TIVE [facility] Comment: HIV-1 antigen and HIV-1/HIV-2 antibodies were not detected. There is no laboratory evidence of HIV infection. PLEASE NOTE: This information has been disclosed to you from records whose confidentiality may be protected by state law. If your state requires such protection, then the state law prohibits you from making any further disclosure of the information without the specific written consent of the person to whom it pertains, or as otherwise permitted by law. A general authorization for the release of medical or other information is NOT sufficient for this purpose. For additional information please refer to http://education.Network18/faq/BXD170 (This link is being provided for informational/ educational purposes only.) The performance of this assay has not been clinically validated in patients less than 2 years old. Blood Blood / Unknown 08/15/2024 3 :05 PM EDT 08/15/2024 3:06 PM EDT Tanya PERERA-[facility] LAB - BLOOD DRAW Final Resul t Performing Organization Address [facility]/ZIP Co de Phone Number [facility] [address] [address], [employer] [address] [phone] * (ABNORMAL) HGA1C W/EAG (08/15/2024 3:05 PM EDT) HEMOGLOBIN A1C 6.1(H) <5.7 % [facility] Comment: For someone without known diabetes, a hemoglobin A1c value between 5.7% and 6.4% is consistent with prediabetes and should be confirmed with a follow-up test. For someone with known diabetes, a value <7% indicates that their diabetes is well controlled. A1c targets should be individualized based on duration of diabetes, age, comorbid conditions, and other considerations. This assay result is consistent with an increased risk of diabetes. Currently, no consensus exists regarding use of hemoglobin A1c for diagnosis of diabetes for children. EAG (MG/DL) 128 mg/dL [facility] EAG (MMOL/L) 7.1 mmol/L [facility] Blood Blood / Unknown 08/15/2024 3 :05 PM EDT 08/15/2024 3:06 PM EDT us Tanya Shields PA-C LAB - BLOOD DRAW Edited Resu lt - Final [facility] [address] [place] [id number], [facility] [address] [place] [phone] * LIPIDS W RFLX TO DIRECT LDL (08/15/2024 3:05 PM EDT) [facility] CHOLESTEROL, TOTAL 147 <200 mg/dL [facility] HDL CHOLESTEROL 59 > OR = 50 mg/dL [facility] TRIGLYCERIDES 98 <150 mg/dL [facility] LDL-CHOLESTEROL 70 99 mg/dL (calc) [facility] Comment: Reference range: <100 Desirable range <100 mg/dL for primary prevention; <70 mg/dL for patients with CHD or diabetic patients with > or = 2 CHD risk factors. LDL-C is now calculated using the Niels calculation, which is a validated novel method providing better accuracy than the Friedewald equation in the estimation of LDL-C. Deniz YOU et al. MATTHEW. 2013;310(19): 2427-2958 (http://education.[employer]/faq/USL051) CHOL/HDLC RATIO 2.5 <5.0 (calc) [facility] NON-HDL CHOLESTEROL 88 <130 mg/dL (calc) [facility] Comment: For patients with diabetes plus 1 major ASCVD risk factor, treating to a non-HDL-C goal of <100 mg/dL (LDL-C of <70 mg/dL) is considered a therapeutic option. Blood Blood / Unknown 08/15/2024 3 :05 PM EDT 08/15/2024 3:06 PM EDT Tanya Shields PA-C LAB - BLOOD DRAW Final Resul t [facility] [address] [place] [address], [facility] [address] [place] [phone] from Last 3 Months or Most Recently Relevant to Health Maintenance Insurance [employer] Member Subscriber Plan / Payer (Ef fective 2023-Present) Name:Claudette Velazquez Relation to Subscriber:Self Name:Claudette Velazquez Payer ID:[id number] Type:Indemnity Address: [facility] [address] [place] [address] Care Teams Bilingual Medical Assistant Relationship Specialty Start Date End Date Tanya Shields PA-C [address] [place] [address] PCP - General Internal Medicine 05/04/24
--- NOTE | 2024-11-19 00:32 | ECG_ITS ---
Test Reason : STROKE ALERT Blood Pressure : */* mmHG Vent. Rate : 84 BPM Atrial Rate : 84 BPM P-R Int : 192 ms QRS Dur : 76 ms QT Int : 406 ms P-R-T Axes : 42 46 54 degrees QTcB Int : 479 ms Sinus rhythm with frequent Premature ventricular complexes Abnormal ECG When compared with ECG of 18-Nov-2023 07:28, No significant changes seen Referred By: Akosua Byrd Electronically Signed By: ANDRÉS ARANGO
[2024-11-19 00:34] LABS: MANUAL DIFF FLAG NO
[2024-11-19 00:42] LABS: Hematocrit 30.1 % (37.0-47.0); Hemoglobin 10.7 g/dl (12.0-16.0); Imm Gran Abs Auto 0.04 X10*3/uL (0.00-0.03); Imm Gran Pct Auto 0.5 % (0.0-0.4); Lymphocytes Absolute Auto 2.5 X10*3/uL (1.2-4.9); Mean Corpuscular HGB Conc 35.5 g/dl (31.0-35.0); Mean Corpuscular Hemoglobin 31.8 pg (27.0-33.0); Mean Corpuscular Volume 89.6 fL (80.0-98.0); NRBC Abs Auto 0.000 X10*3/uL (0.0-0.012); NRBC Pct Auto 0.0 /100WBC (0.0-0.2); Platelet Count 145 X10*3/uL (160-400); Red Blood Count 3.36 X10*6/uL (4.20-5.50); White Blood Count 8.8 X10*3/uL (4.8-10.8)
[2024-11-19 00:47] LABS: INTERNATIONAL NORM RATIO 1.1 (0.9-1.1); Prothrombin Time 12.9 SEC (10.9-12.4)
[2024-11-19 00:49] LABS: Anion Gap 14 (12-20); Blood Urea Nitrogen 28 mg/dL (9-16); Calcium 8.6 mg/dL (8.4-10.2); Carbon Dioxide 22 mmol/L (22-29); Chloride 110 mmol/L (96-108); Creatinine Clr Calc Pharmacy 53.0; Estimated Glomerular Filt Rate 58; Magnesium 2.2 mg/dL (1.6-2.6); Potassium 3.9 mmol/L (3.3-5.1); Sodium 142 mmol/L (135-145)
[2024-11-19 01:01] LABS: Troponin-I High Sensitivity < 2.7 ng/L (<3.5-17.0)
[2024-11-19 01:09] LABS: Prothrombin Time Whole Bld POC 13.4 sec (11.1-13.5); ~PT, ~INR - Anti Coag Clinic 1.1 (0.9-1.1)
[2024-11-19 01:32] LABS: Glucose, Whole Blood 97 mg/dL (60-115)
[2024-11-19] MEDS: Lactated Ringers 1,000 ML 999 ML IV (02:32)
--- NOTE | 2024-11-19 02:37 | PC.NURSE ---
Swallow screen completed- pt passed with no issues. Neuros intact. left sided mouth weakness continues, however pt reports left arm weakness/numbness has improved somewhat. IV fluids infusing. urine sample sent down to lab. Call saucedo within reach plan of care ongoing
--- NOTE | 2024-11-19 02:38 | PM.IMHP ---
History of Present Illness Date of Service: 11/19/24 Attending physician on admission: Richard López Chief Complaint: weakness, left arm Pt is an Tristanian speaking female (spanish interpreter/translator unavailable, daughter interpreted for HPI), with PMH prediabetes, osteoporosis, recent positive stress test, HTN, HLD, old T12 compressoion fx related to fall 2021, obesity, COPD/ tobacco dependence, anemia, with no surgical hx presents to ED with complaints of Left arm numbness and resolved Left leg weakness that started approximately 5 PM Tuesday while with family at [employer] Pt was well on Tuesday with no specific complaints. Daughter shared that pt was seen by manager business process back in August for noted edema in BLE's and was referred by her PCP to a manager business process. [facility] Pt then had a stress test and results were positive. Pt is scheduled for an upcoming angiogram in the near future. Pt was noted to have Left lower facial droop (mild) but per daughter, pt has had this for some time and this has been related to the dentures. Dentures fit well overall but the left sided mouth change has existed since pt started wearing the dentures. Currently pt denies CP, SOB at rest or with exertion. Neuro exam reassuring and pt was able to ambulate to the independently. Gait balanced and steady. Pt reports a mild DIAZ but no visual changes. Pt reports presence of left arm numbness but strength in all extremities is equal and 5/5. Pt is right handed dominant. Pt denies hx of L shoulder issues including rotator cuff tear. CT head negative for acute findings and CTA notes Severe stenosis of the right internal carotid artery at the bulb secondary to calcified plaque. Pt has been on rosuvastatin and baby ASA daily. Pt also takes Bisoprolol, Lisinopril/ HCTZ and amlodipine daily. Per nursing, pt did pass bedside swallow. Pt is a current smoker and smokes estimated 5 cigarettes a day. Pt defers need for NRT and has no plan for cessation at this time. Pt deneis regular alcohol use. Pt currently follows with PCP and now manager business process. Pt does not follow with any other medical specialists at this time. Review of Systems Review of Systems: Pt reports mild DIAZ but otherwise denies CP, SOB at rest or with exertion, ABD pain, N/V, constipation, diarrhea. Pt continues to have numbness and tingling in L arm only and the weakness in Left leg has resolved. Yes all other systems are reviewed and are negative [facility] Medical History (Updated 11/19/24 @ 04:34 by Akosua Byrd DO) Anemia Thrombocytopenia Tachycardia Chest pain T12 compression fracture Fall Osteoporosis Tobacco dependence Obesity HLD (hyperlipidemia) HTN (hypertension) Cognitive capacity: A/O X3 Functional capacity: independent ambulation Patient : No Pertinent family history: Brother recent CVA Social History (Updated 11/19/24 @ 04:02 by Merle Argueta, [facility]) Patient Tobacco Use Status: Current everyday Tobacco user Tobacco use type: Cigarette Cigarettes Per Day: 5 Smoked in Last 30 Days: Yes Use of substances other than those prescribed or required for medical reasons: No Advance Directives: No Advance Directives Information Provided: No Patient : No Ebola Risk: Travel/Contact With Anyone From Affected Area/s: No Has Patient Experienced Ebola Symptoms: No Meds Allergies Allergy/AdvReac Type Severity Reaction Status Date / Time No Known Allergies Allergy Verified 11/18/24 23:51 Active Medications: Current Medications Acetaminophen (Acetaminophen 325 Mg Tablet) 650 mg PO Q6H PRN PRN Reason: Pain, Mild 1-3,fever,headache Albuterol/Ipratropium (Albuterol/Iprat 2.5/0.5mg 3 Ml Ampul.Neb) 3 ml INHALE Q4H PRN PRN Reason: Shortness of Breath/Wheezing Calcium Carbonate (Calcium Carbonate 750 Mg Tab.Chew) 750 mg PO Q4H PRN PRN Reason: Heartburn Lactated Ringer's (Lr) 1,000 mls @ 999 mls/hr IV .Q1H1M ONE Stop: 11/19/24 03:21 Last Admin: 11/19/24 02:32 Dose: 999 mls/hr Magnesium Hydroxide (Milk Of Magnesia 30 Ml Oral.Susp) 30 ml PO DAILY PRN PRN Reason: Constipation Melatonin (Melatonin 3 Mg Tablet) 6 mg PO BEDTIME PRN PRN Reason: Insomnia Ondansetron HCl (Ondansetron Hcl 4 Mg/2 Ml Vial) 4 mg IVPUSH Q8H PRN PRN Reason: Nausea and Vomiting Sodium Chloride (0.9 % Sodium Chloride Flush 3 Ml Syringe) 3 ml IVFLUSH QSHIFT JALYN Physical Exam Vital Signs and Narrative: Vital Signs: Last Vital Signs Temp 97.4 F 11/19/24 01:15 Pulse 87 11/19/24 02:31 Resp 16 11/19/24 02:31 BP 125/62 11/19/24 02:31 Pulse Ox 95 11/19/24 02:31 O2 Del Method Room Air 11/19/24 02:31 BMI result Body Mass Index 35.8 Pt A/O X3 speaks only TELUGU (not turkmen) HEENT: PERRLA, sclera non icteric, conjunctiva pink, normocephalic and atraumatic Neuro: no obvious deficits, CN II-XII intact, slight droop left mouth (chronic per daughter) Cardiac: Tachy 112 with PVCs on telemetry, otherwise regular, no murmur, no JVD, no lower ext edema, ? carotid bruit R Pulmonary: Lungs CTA B ABD: no distension, no tenderness, no guarding, active bowel sounds throughout MSK: strength 5/5 upper and lower ext, full ROM of LUE Psych: calm cooperative Skin: intact Results Labs 11/19/24 04:41 11/19/24 00:30 Labs: Laboratory Results - last 24 hr 11/19/24 11/19/24 11/19/24 00:30 00:44 01:05 MCV 89.6 MCH 31.8 MCHC 35.5 H RDW 12.7 Plt Count 145 L MPV 12.6 H Immature Gran % (Auto) 0.5 H Neut % (Auto) 63.9 Lymph % (Auto) 28.5 [place] % (Auto) 5.9 Eos % (Auto) 1.0 Baso % (Auto) 0.2 Lymph # (Auto) 2.5 [place] # (Auto) 0.5 Eos # (Auto) 0.1 Baso # (Auto) 0.0 Abs Immat Gran (auto) 0.04 H Absolute Neuts (auto) 5.6 Absolute Nucleated RBC 0.000 Nucleated RBC % (auto) 0.0 PT 12.9 H Whole Blood PT 13.4 INR 1.1 Whole Blood INR 1.1 Anion Gap 14 Estim Creat Clear Calc 53.0 Estimated GFR 58 POC Glucose 97 Random Glucose 106 Calcium 8.6 D Magnesium 2.2 ECG Attestation: I personally reviewed and interpreted this ECG as follows: (ST PVC) Prior ECG tracings: available for review Imaging Radiologist's Impressions: HEAD NECK CTA IMPRESSION: 1. No large vessel occlusion of the intracranial arteries. 2. Severe stenosis of the right internal carotid artery at the bulb secondary to calcified plaque. Measurement of the stenosis is difficult to estimate due to patient motion. HEAD CT Neg for acute findings Assessment and Plan (1) CVA (cerebral vascular accident): Qualifiers: CVA mechanism: other Qualified Code(s): I63.89 - Other cerebral infarction Status: Acute Plan Pt is an Tristanian speaking female (spanish interpreter/translator unavailable, daughter interpreted for HPI), with PMH prediabetes, osteoporosis, recent positive stress test, HTN, HLD, old T12 compressoion fx related to fall 2021, obesity, COPD/ tobacco dependence, anemia, with no surgical hx presents to ED with complaints of Left arm numbness and resolved Left leg weakness that started approximately 5 PM Tuesday while with family at [employer] Pt is being admitted for possible CVA, with continued Left arm numbness and tingling. Neuro exam otherwise reassuring. CVA, rule out Brain MRI in AM Outside window for TNK Neuro consult Continue ASA, statin once med rec completed Avoid hypotension Echo ordered Carotid dopplers ordered noting results from CTA (severe stenosis R Internal Carotid at the bulb with plaque) Lipid panel and HGB A1C ordered NV checks Q4H Telemetry OT, PT, ST -pt did pass bedside nursing swallow evaluation Per pt's daughter, left mouth dropp is NOT new Recent Chest pain, lower leg edema Pt recently had positive stress test and is scheduled for outpatient aniogram with [facility], Dr. Pompa Pt has been on ASA 81l rosouvastatin, amlodipine, lisinopril/HCTZ and Bisoprolol Troponin negative, BNP for AM Continue telemetry No report of chest pain on admission HTN Permissive HTN allowed, BP currently stable HLD Pt normally on statin Lipid panel pending Cardiac diet Tobacco dependece Pt deferred need for NRT Pt counseled on smoking and the Neurological and CV risks associated with continued smoking Obesity BMI 35.8 Nutritional consult ordered DVT prophylaxis: Lovenox MED REC PENDING FULL CODE STATUS Quality Stroke Does the patient have a stroke diagnosis?: Yes Reason for No Anti-thrombotic by Day Two: Not indicated (needs MRI and neuro consult ) VTE Prior VTE?: No VTE Risk Level:: Medical - moderate - high VTE Device Contraindication: N/A - Device Ordered VTE Drug Contraindication: N/A - Med Ordered
[2024-11-19 02:41] LABS: Appearance Urine Clear; Glucose Urine UA Negative (Negative); PH 7.0 (5.0-9.0); Specific Gravity - Urine >= 1.030 (1.005-1.025)
[2024-11-19 03:22] LABS: Free T4 (Free Thyroxine) 1.05 ng/dL (0.71-1.85); Thyroid Stimulating Hormone 2.92 uIU/mL (0.32-4.0)
[2024-11-19 04:49] LABS: MANUAL DIFF FLAG NO
[2024-11-19 04:56] LABS: Hematocrit 30.9 % (37.0-47.0); Hemoglobin 10.7 g/dl (12.0-16.0); Imm Gran Abs Auto 0.06 X10*3/uL (0.00-0.03); Imm Gran Pct Auto 0.7 % (0.0-0.4); Lymphocytes Absolute Auto 2.1 X10*3/uL (1.2-4.9); Mean Corpuscular HGB Conc 34.6 g/dl (31.0-35.0); Mean Corpuscular Hemoglobin 30.9 pg (27.0-33.0); Mean Corpuscular Volume 89.3 fL (80.0-98.0); NRBC Abs Auto 0.000 X10*3/uL (0.0-0.012); NRBC Pct Auto 0.0 /100WBC (0.0-0.2); Platelet Count 149 X10*3/uL (160-400); Red Blood Count 3.46 X10*6/uL (4.20-5.50); White Blood Count 8.8 X10*3/uL (4.8-10.8)
[2024-11-19 05:11] LABS: Anion Gap 13 (12-20); Blood Urea Nitrogen 22 mg/dL (9-16); Calcium 8.8 mg/dL (8.4-10.2); Carbon Dioxide 21 mmol/L (22-29); Chloride 113 mmol/L (96-108); Cholesterol 124 mg/dL (<200); Creatinine Clr Calc Pharmacy 63.5; Estimated Glomerular Filt Rate > 60; HDL Cholesterol 46 mg/dL (>40); Potassium 3.9 mmol/L (3.3-5.1); Sodium 143 mmol/L (135-145); Triglycerides 78 mg/dL (<150)
[2024-11-19 05:15] LABS: Hemoglobin A1C 112.9510 umol/L; Total Hemoglobin (HGBA1C) 2858.7039 umol/L
[2024-11-19 05:19] LABS: B Type Natriuretic Peptide 49 pg/mL (<100)
--- NOTE | 2024-11-19 07:00 | CA_ITS ---
Transthoracic Echocardiogram Patient (Last, First, Middle): Claudette Velazquez, Gender: Female Date of : 1960 Age: 64 Procedure Date: 11/19/2024 Procedure Type: Transthoracic Echocardiogram Location: ER Height: 149.86 cm Weight: 80.29 kg BSA: 1.75 m2 Heart Rate: 66 bpm BP: 113 / 63 mmHg Production Weigher: RENEE Referring MD: Merle Argueta MACHINE II TRIMMER-MURALI Symptoms: possible CVA, tachycardia Study Quality: Fair/Definity not given, accident investigator not available ECG Rhythm: Sinus Conclusions: - The left ventricular systolic function is normal. The visually estimated ejection fraction is between 60-65%. - There is mild anterior mitral leaflet thickening. There is mild mitral annular calcification. - There is mild tricuspid valve regurgitation. Findings Left Ventricle Normal left ventricular cavity size. The left ventricular systolic function is normal. The visually estimated ejection fraction is between 60-65%. There is no evidence of regional wall motion abnormalities. Evidence suggests grade I (mild) diastolic dysfunction. There is mild septal asymmetric hypertrophy. Right Ventricle Mildly increased right ventricular cavity size. There is normal right ventricular systolic function. Atria Both atria are normal in size. Aortic Valve There is a normal trileaflet aortic valve. There is no aortic valve stenosis. There is no aortic valve regurgitation. Mitral Valve There is mild anterior mitral leaflet thickening. There is mild mitral annular calcification. There is trace mitral valve regurgitation. There is no mitral valve stenosis. Pulmonic Valve The pulmonic valve is likely normal. Tricuspid Valve There is mild tricuspid valve regurgitation. There is no evidence of pulmonary hypertension. Great Vessels The asc aorta is normal in size. Venous The inferior vena cava is normal in size and collapses greater than 50% with inspiration. Pericardium/Pleural There is no evidence of pericardial effusion. Prior Study Comparison No prior study available for comparison. Measurements 2D Linear Measurements IVSd: 1.13 0.6-0.9/0.6-1.0 cm LVIDd: 4.66 3.9-5.3/4.2-5.9 cm LVIDd Index: 2.66 2.4-3.2/2.2-3.1 cm/m2 LVIDs: 2.61 2.0-3.6 cm LVPWd: 0.75 0.7-1.1 cm LA Diam: 3.90 2.7-3.8/3.0-4.0 cm LAIDs Index: 2.23 1.5-2.3 cm/m2 LV Mass: 185.54 67-162/88-224 g LV Mass Index: 106.02 43-95/49-115 g/m2 LVOT Diam: 1.90 3.0+(-)1.3 cm 2D Systolic Function EF 4C: 67.80 >55% Mitral Valve MV VTI: 0.46 MV Pk Bin: 1.54 MV Mn Bin: 0.81 MV Pk Grad: 9.00 MV Mn Grad: 3.00 MV Pk E: 1.08 MV PK A: 1.38 MV Decel Time: 333.00 E/A: 0.80 E'Lateral: 4.46 E'Medial: 4.13 E/E' Med: 26.20 E/E' Lat: 24.20 PHT: 97.00 MVA PHT: 2.27 MVA Continuity: 1.56 Decel Ciales: 3.24 Aortic Valve AoV Pk Bin: 1.41 AoV Pk Grad: 8.00 CARMEN: 2.35 LVOT LVOT Pk Bin: 1.13 LVOT Mn Bin: 0.82 LVOT VTI: 0.25 LVOT Pk Grad: 5.00 LVOT Mn Grad: 3.00 LVOT Diam: 1.90 LVOT Area: 2.84 Diastolic Function MV Pk E: 1.08 MV Pk A: 1.38 E/A: 0.80 E'Medial: 4.13 E/E' Med: 26.20 E' Laterial: 4.46 E/E' Lat: 24.20 Right Ventricle TAPSE (mm): 27.70 TVS' Bin: 14.80 Tricuspid Valve TR Pk Bin: 2.58 TR Pk Grad: 27.00 RA Press: 3.00 RVSP: 30.00 Great Vessels Aorta Sinus of Valsalva: 2.90 2.0-3.5 cm Ao Asc: 3.30 2.1-3.4 cm Pulmonary Veins Pulm Vein S/D 1.60 Pulmonary Valve PV Pk Bin: 0.78 Peak PV Grad: 2.00 Updated in Other Vendor System with Status of Final Farhan Chang MD electronically signed on 11/19/2024 3:48:59 PM with status of Final
[2024-11-19] MEDS: 0.9 % Sodium Chloride Flush 3 ML SYRINGE IVFLUSH ×2 (08:02→15:18)
--- NOTE | 2024-11-19 08:16 | PC.NURSE ---
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 Pt was well on Tuesday with no specific complaints. Daughter shared that pt was seen by roller inspector back in August for noted edema in BLE's and was referred by her PCP to a roller inspector. Pt saw Dr. Eric with [facility]. Pt then had a stress test and results were positive. Pt is scheduled for an upcoming angiogram in the near future. Pt was noted to have Left lower facial droop (mild) but per daughter, pt has had this for some time and this has been related to the dentures. Dentures fit well overall but the left sided mouth change has existed since pt started wearing the dentures. Currently pt denies CP, SOB at rest or with exertion. Neuro exam reassuring and pt was able to ambulate to the independently. Gait balanced and steady. Pt reports a mild DIAZ but no visual changes. Pt reports presence of left arm numbness but strength in all extremities is equal and 5/5. Pt is right handed dominant. Pt denies hx of L shoulder issues including rotator cuff tear. CT head negative for acute findings and CTA notes Severe stenosis of the right internal carotid artery at the bulb secondary to calcified plaque. Pt has been on rosuvastatin and baby ASA daily. Pt also takes Bisoprolol, Lisinopril/ HCTZ and amlodipine daily. Per nursing, pt did pass bedside swallow. Original Note: Medical History Anemia Thrombocytopenia Tachycardia Chest pain T12 compression fracture Fall Osteoporosis Tobacco dependence Obesity HLD (hyperlipidemia) HTN (hypertension)
--- NOTE | 2024-11-19 08:32 | PC.NURSE ---
Addendum entered by Josie Peterson RN 11/19/24 16:18: MRI - Small acute right frontoparietal infarcts. Addendum entered by Josie Peterson RN 11/19/24 08:35: Pt is an 64 yo Telugu speaking female with PMH prediabetes, osteoporosis, recent positive stress test, HTN, HLD, old T12 compressoion fx related to fall 2021, obesity, COPD/ tobacco dependence, anemia, presents to ED with complaints of Left arm numbness and resolved Left leg weakness that started approximately 5 PM Tuesday while with family at [employer]. Pt was well on Tuesday with no specific complaints. Pt then had a stress test and results were positive. Pt is scheduled for an upcoming angiogram in the near future. Pt was noted to have Left lower facial droop (mild) but per daughter, pt has had this for some time and this has been related to the dentures. Dentures fit well overall but the left sided mouth change has existed since pt started wearing the dentures. Neuro exam reassuring and pt was able to ambulate to the independently. Gait balanced and steady. Pt reports presence of left arm numbness but strength in all extremities is equal and 5/5. CT head negative for acute findings and CTA notes Severe stenosis of the right internal carotid artery at the bulb secondary to calcified plaque. Patient alert and oriented. threat monitoring analyst maintained and NSR noted with frequent episodes of bigeminy and PVC's. Denies any CP. Patient continues with left forearm numbness/tingling. Lungs clear bilat. Respirations even and non-labored. Abdomen soft, non-tender with positive bowel sounds. Positive pedal pulses. Plan for MRI today. Original Note: Medical History Anemia Thrombocytopenia Tachycardia Chest pain T12 compression fracture Fall Osteoporosis Tobacco dependence Obesity HLD (hyperlipidemia) HTN (hypertension)
--- NOTE | 2024-11-19 09:00 | PHA.MEDREC ---
Addendum entered by Marko Espinoza PharmD 11/19/24 09:17: reviewed Original Note: Pharmacy Consult ? Medication Reconciliation Pharmacy has completed the medication reconciliation. Spoke with pt daughter on pt son phone (who is at bedside) and pt daughter was able to confirmed pt medications. Pt daughter stated the pt takes a Magnesium OTC for pt leg cramping but didn't know the dose at this time.
--- NOTE | 2024-11-19 09:52 | PM.NEUROCN ---
History of Present Illness Data of Consult Service Date: 11/19/24 Primary Care Provider: Unknown Physician HPI Reason for consult: Stroke 64 years old woman with multiple other medical issues came to hospital with complain of left arm or leg numbness and weakness that started a night before. There was no nausea or vomiting but she complain of mild headache. There was no acute cold or flu-like illness or a recent fall. Her head CT did not reveal any acute abnormality while CTA of brain and neck revealed critical right extracranial internal carotid artery stenosis. Review of Systems Review of Systems: No recent seizure or trauma [facility] Past Medical History Medical History Anemia Thrombocytopenia Tachycardia Chest pain T12 compression fracture Fall Osteoporosis Tobacco dependence Obesity HLD (hyperlipidemia) HTN (hypertension) Social History Social History (Updated 11/19/24 @ 04:02 by JUS Valenzuela-MURALI) Patient Tobacco Use Status: Current everyday Tobacco user Tobacco use type: Cigarette Cigarettes Per Day: 5 Smoked in Last 30 Days: Yes Use of substances other than those prescribed or required for medical reasons: No Advance Directives: No Advance Directives Information Provided: No Patient : No Travel History Ebola Risk: Travel/Contact With Anyone From Affected Area/s: No Has Patient Experienced Ebola Symptoms: No Meds Allergies Allergy/AdvReac Type Severity Reaction Status Date / Time No Known Allergies Allergy Verified 11/18/24 23:51 Active Medications: Current Medications Acetaminophen (Acetaminophen 325 Mg Tablet) 650 mg PO Q6H PRN PRN Reason: Pain, Mild 1-3,fever,headache Albuterol/Ipratropium (Albuterol/Iprat 2.5/0.5mg 3 Ml Ampul.Neb) 3 ml INHALE Q4H PRN PRN Reason: Shortness of Breath/Wheezing Calcium Carbonate (Calcium Carbonate 750 Mg Tab.Chew) 750 mg PO Q4H PRN PRN Reason: Heartburn Magnesium Hydroxide (Milk Of Magnesia 30 Ml Oral.Susp) 30 ml PO DAILY PRN PRN Reason: Constipation Melatonin (Melatonin 3 Mg Tablet) 6 mg PO BEDTIME PRN PRN Reason: Insomnia Ondansetron HCl (Ondansetron Hcl 4 Mg/2 Ml Vial) 4 mg IVPUSH Q8H PRN PRN Reason: Nausea and Vomiting Sodium Chloride (0.9 % Sodium Chloride Flush 3 Ml Syringe) 3 ml IVFLUSH QSHIFT JALYN Last Admin: 11/19/24 08:02 Dose: 3 ml Home Medications ?Medication ?Instructions ?Recorded ?Confirmed ?Last Taken ?Type amlodipine 10 mg tablet 10 mg PO DAILY 11/19/24 11/19/24 11/18/24 History aspirin 81 mg tablet 81 mg PO DAILY 11/19/24 11/19/24 11/18/24 History calcium 600 mg (as 1 tab PO DAILY 11/19/24 11/19/24 11/18/24 History carbonate)-vitamin D3 10 mcg (400 unit) tablet lisinopril 20 1 tab PO DAILY 11/19/24 11/19/24 11/18/24 History mg-hydrochlorothiazide 12.5 mg tablet rosuvastatin 10 mg tablet 10 mg PO BEDTIME 11/19/24 11/19/24 11/17/24 History Physical Exam Vital Signs: Vital Signs: Last Vital Signs Temp 98.3 F 11/19/24 05:41 Pulse 89 11/19/24 08:03 Resp 16 11/19/24 08:03 BP 125/72 11/19/24 08:03 Pulse Ox 90 L 11/19/24 08:03 O2 Del Method Room Air 11/19/24 08:03 BMI result Body Mass Index 35.8 Neuro: Other: He is alert and awake responding to questioning appropriately. There was mild left-sided central type facial weakness and she complain of left hand and arm weakness. She was able to raise her arm against gravity. Visual gimenez are full. There was no neglect. Affect was normal. Results Labs 11/19/24 04:41 11/19/24 04:41 Labs: Short CBC 11/19/24 11/19/24 Range/Units 00:30 04:41 WBC 8.8 8.8 (4.8-10.8) X10*3/uL Hgb 10.7 L D 10.7 L (12.0-16.0) g/dl Hct 30.1 L D 30.9 L (37.0-47.0) % Plt Count 145 L 149 L (160-400) X10*3/uL BMP 11/19/24 11/19/24 00:30 04:41 Sodium 142 143 Potassium 3.9 3.9 Chloride 110 H 113 H Carbon Dioxide 22 21 L BUN 28 H 22 H Creatinine 0.97 0.81 Calcium 8.6 D 8.8 Urine 11/19/24 Range/Units 02:33 Urine Color Yellow Urine Appearance Clear Urine pH 7.0 (5.0-9.0) Ur Specific [place] >= 1.030 H (1.005-1.025) Urine Protein Negative (Neg-Trace) mg/dL Urine Glucose (UA) Negative (Negative) mg/dL Head CT did not reveal any acute abnormality. Mild chronic microvascular ischemic changes were noted. CTA revealed severe stenosis of extracranial carotid artery at the bulb. Assessment and Plan (1) CVA (cerebral vascular accident): Qualifiers: CVA mechanism: other Qualified Code(s): I63.89 - Other cerebral infarction Status: Acute 64 years old woman who probably had an acute right hemispheric infarct associated with severe right extracranial carotid stenosis. I recommend noncontrast MRI of brain for proper definition in a vascular surgery consultation. In the meantime, avoid hypotension and for now hold amlodipine. Continue aspirin and statin. Procedures Date of Service Date of Service: 11/19/24
--- NOTE | 2024-11-19 10:22 | PM.EVENT ---
Event Note Date of Service: 11/19/24 Event Note: Seen and examined, no focal weakness, just nimbnes on left arm. CT H and neck reviewed. MRI pending. Neuro eval pending. DC if MRI negative Time Spent With Patient Time: Total time managing care of this patient today ____ minutes.
--- NOTE | 2024-11-19 10:38 | PM.DS ---
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 Pt was well on Tuesday with no specific complaints. Daughter shared that pt was seen by babbitt spinner back in August for noted edema in BLE's and was referred by her PCP to a babbitt spinner. Pt saw Dr. Eric with [facility]. Pt then had a stress test and results were positive. Pt is scheduled for an upcoming angiogram in the near future. Pt was noted to have Left lower facial droop (mild) but per daughter, pt has had this for some time and this has been related to the dentures. Dentures fit well overall but the left sided mouth change has existed since pt started wearing the dentures. Currently pt denies CP, SOB at rest or with exertion. Neuro exam reassuring and pt was able to ambulate to the independently. Gait balanced and steady. Pt reports a mild DIAZ but no visual changes. Pt reports presence of left arm numbness but strength in all extremities is equal and 5/5. Pt is right handed dominant. Pt denies hx of L shoulder issues including rotator cuff tear. CT head negative for acute findings and CTA notes Severe stenosis of the right internal carotid artery at the bulb secondary to calcified plaque. Pt has been on rosuvastatin and baby ASA daily. Pt also takes Bisoprolol, Lisinopril/ HCTZ and amlodipine daily. Per nursing, pt did pass bedside swallow. Pt is a current smoker and smokes estimated 5 cigarettes a day. Pt defers need for NRT and has no plan for cessation at this time. Pt deneis regular alcohol use. Pt currently follows with PCP and now babbitt spinner. Pt does not follow with any other medical specialists at this time. Hospital course: Patient presented with weakness and numness in left arm. CT of head and neck show no acute finding suggestive of stroke, apart from left arm numness, neuro exam is intact, however MRI confirmed a Small acute right frontoparietal infarcts She is on ASA at home and will add Plavix, high intensity statin--her cholesterol profile is fairly good. Seen by PT, OT and needs no further therapy. Right carotid Stenosis: Will need carotid surgery in the near future, outpatient referal made to vascular surgery Final diagnoses: Acute frontoparietal stroke Right carotid stenosis Time Attestation Discharge Coordination Time (in mins): 35 Quality: Safe Use of Opioids Does Pt have an Active Cancer Diagnosis on the Problem List?: No Quality: Stroke Does the patient have a stroke diagnosis?: Yes Reason for No Anti-thrombotic at DC: N/A - Med Ordered Reason for No Anticoagulant at DC: N/A - Med Ordered Reason Not Initiating IV-Tpa: Not indicated Reason for No Anti-thrombotic by Day Two: N/A - Med Ordered Reason for No Statin at DC: N/A - Med Ordered Physical Exam Vital Signs: Vital Signs: Selected Entries 11/20/24 07:39 Temperature 97.7 F Pulse Rate 73 Respiratory Rate 18 Blood Pressure 112/71 Pulse Oximetry 95 Oxygen Delivery Me thod Room Air DS: Data Data Completed and Pending Labs on day of discharge: Laboratory Results - last 24 hr 11/19/24 11/19/24 11/19/24 00:30 00:44 01:05 WBC 8.8 RBC 3.36 L D Hgb 10.7 L D Hct 30.1 L D MCV 89.6 MCH 31.8 MCHC 35.5 H RDW 12.7 Plt Count 145 L MPV 12.6 H Immature Gran % (Auto) 0.5 H Neut % (Auto) 63.9 Lymph % (Auto) 28.5 [place] % (Auto) 5.9 Eos % (Auto) 1.0 Baso % (Auto) 0.2 Lymph # (Auto) 2.5 [place] # (Auto) 0.5 Eos # (Auto) 0.1 Baso # (Auto) 0.0 Abs Immat Gran (auto) 0.04 H Absolute Neuts (auto) 5.6 Absolute Nucleated RBC 0.000 Nucleated RBC % (auto) 0.0 PT 12.9 H Whole Blood PT 13.4 INR 1.1 Whole Blood INR 1.1 Sodium 142 Potassium 3.9 Chloride 110 H Carbon Dioxide 22 Anion Gap 14 BUN 28 H Creatinine 0.97 Estim Creat Clear Calc 53.0 Estimated GFR 58 POC Glucose 97 Random Glucose 106 Estimat Average Glucose Hemoglobin A1c % Calcium 8.6 D Magnesium 2.2 Troponin I High Sens < 2.7 B-Natriuretic Peptide Triglycerides Cholesterol LDL Cholesterol, Calc HDL Cholesterol TSH 2.92 Free T4 1.05 Urine Color Urine Appearance Urine pH Ur Specific [place] Urine Protein Urine Glucose (UA) Urine Ketones Urine Blood Urine Nitrite Ur Leukocyte Esterase 11/19/24 11/19/24 02:33 04:41 WBC 8.8 RBC 3.46 L Hgb 10.7 L Hct 30.9 L MCV 89.3 MCH 30.9 MCHC 34.6 RDW 12.6 Plt Count 149 L MPV 12.4 H Immature Gran % (Auto) 0.7 H Neut % (Auto) 69.3 Lymph % (Auto) 23.4 [place] % (Auto) 5.4 Eos % (Auto) 1.0 Baso % (Auto) 0.2 Lymph # (Auto) 2.1 [place] # (Auto) 0.5 Eos # (Auto) 0.1 Baso # (Auto) 0.0 Abs Immat Gran (auto) 0.06 H Absolute Neuts (auto) 6.1 Absolute Nucleated RBC 0.000 Nucleated RBC % (auto) 0.0 PT Whole Blood PT INR Whole Blood INR Sodium 143 Potassium 3.9 Chloride 113 H Carbon Dioxide 21 L Anion Gap 13 BUN 22 H Creatinine 0.81 Estim Creat Clear Calc 63.5 Estimated GFR > 60 POC Glucose Random Glucose 105 Estimat Average Glucose 120 Hemoglobin A1c % 5.8 Calcium 8.8 Magnesium Troponin I High Sens B-Natriuretic Peptide 49 Triglycerides 78 Cholesterol 124 LDL Cholesterol, Calc 63 HDL Cholesterol 46 TSH Free T4 Urine Color Yellow Urine Appearance Clear Urine pH 7.0 Ur Specific [place] >= 1.030 H Urine Protein Negative Urine Glucose (UA) Negative Urine Ketones Negative Urine Blood Negative Urine Nitrite Negative Ur Leukocyte Esterase Negative Discharge Plan Discharge Anticipated Discharge Date/Time: 11/20/24 15:01 Patient Disposition: Home, Self-Care Discharge Diagnosis: Left arm numness Referrals: Thomas Horvath MD [Physician, Vascular Surgery] - 1 Week Physician,Catracho Sweet [Physician, Medical] - 1 Week Discharge Medications: New clopidogrel 75 mg Tablet 75 mg PO DAILY Qty: 90 0RF rosuvastatin 20 mg tablet 20 mg PO DAILY Qty: 90 0RF Continued lisinopril-hydrochlorothiazide 20-12.5 mg tablet 1 tab PO DAILY amlodipine 10 mg tablet 10 mg PO DAILY calcium carbonate-vitamin D3 600 mg-10 mcg (400 unit) tablet 1 tab PO DAILY aspirin 81 mg Tablet 81 mg PO DAILY Discontinued rosuvastatin 10 mg tablet 10 mg PO BEDTIME Discharge Orders: Discharge Order (Routine); Ordered 11/20/24 Ordered By: Bertram Fernandez Diet: Advance to usual diet Activity on Discharge: As tolerated Stand Alone Forms: Patient Portal Discharge page Print Language: [place] Care Plan Goals: recovery from an acute stroke Health Concerns: Acute stroke Right sided carotid stenosis Plan of Treatment: continue your usual medication and follow up with your Doctor, if you have new symptoms such as difficulty speaking, drooling, weakness, visual changes or others , call 911 continue taking your usual medication in addition to Plavix 75 mg daily You will need to follow up with vascular Surgeon and may need carotid surgery, a referal is been made to Dr. Horvath's office and they will call you Assessment: see above
--- NOTE | 2024-11-19 12:42 | PC.NURSE ---
Patient sent to MRI
--- NOTE | 2024-11-19 19:27 | PC.NURSE ---
this rn assumed care of pt, pt resting in stretcher, no acute distress noted.
--- NOTE | 2024-11-19 19:39 | PC.NURSE ---
pt family member hhas at bedside. pt aox4, neuros in tact, vss, pt offers no complaints at this time.
[2024-11-20] VITALS: BP 130/73; PULSE 69; RESP 16; TEMP 36.6; O2SAT 94
[2024-11-20 03:39] VITALS: BP 102/54; PULSE 81; RESP 17; TEMP 36.3; O2SAT 97
[2024-11-20 07:39] VITALS: BP 112/71; PULSE 73; RESP 18; TEMP 36.5; O2SAT 95
--- NOTE | 2024-11-20 08:26 | MHC.CM.PN ---
CM met with Patient and her Son at bedside. Patient lives in a house with her Son, who will transport to home at time of dc. Home/self care is the goal and CM has initiated and will follow for dc planning. PCP/PA is Tanya Shields, at [facility]. PT is recommending home with family support.
--- NOTE | 2024-11-20 08:56 | MHC.CM.PN ---
Patient has been medically cleared for dc to home today, self care.
[2024-11-20 09:22] VITALS: BP 112/71
[2024-11-20] MEDS: Calcium + Vitamin D 250 MG TABLET PO (09:22)
[2024-11-20] MEDS: 0.9 % Sodium Chloride Flush 3 ML SYRINGE IVFLUSH (09:22)
--- NOTE | 2024-11-20 10:04 | MHC.SLORD ---
Speech Language Pathology Order Status: HERB GROWER order consult placed on 8/ AM. Pt was pending possible d/c on 11/19. Per RN, no concern for swallow. Per pt's son, no concern for swallow/speech/lang. This clinician consulted w/ MD who reported HERB GROWER consult not needed. HERB GROWER order cx. Please re-refer if needed.
[2024-11-20 11:38] VITALS: BP 124/72; PULSE 60; RESP 18; TEMP 36.6; O2SAT 94
[2024-11-20 22:23] LABS: A. Phagocytphilium DNA,RT-PCR NOT DETECTED (NOT DETECTED); Babesia Microti DNA, RT-PCR NOT DETECTED (NOT DETECTED); Borrelia Miyamotoi,DNA RT-PCR NOT DETECTED (NOT DETECTED); E.Chaffeensis DNA RT-PCR NOT DETECTED (NOT DETECTED); Lyme(Borrelia ssp)DNA RT-PCR NOT DETECTED (NOT DETECTED)
== END 2024-11-20 13:05 | disposition home or self-care (01) | DRG 45 ==
LOC: HO.ED 11-19 00:29 → HO.EDOVER 11-19 04:10 → HO.IMC 11-19 20:37
PROVIDERS: Admitting Provider Nurse Practitioner Family; Emergency Provider Emergency Medicine; PCP Physician Assistant; Visit Provider Internal Medicine
DX: I63.231 Cerebral infarction due to unspecified occlusion or stenosis of right carotid arteries (principal); F17.210 Nicotine dependence, cigarettes, uncomplicated; Z71.6 Tobacco abuse counseling; R29.704 NIHSS score 4; R20.0 Anesthesia of skin; Z79.82 Long term (current) use of aspirin; Z79.899 Other long term (current) drug therapy
CPT/HCPCS: 36415; 70450; 70496; 70498; 70551; 80048; 80061; 81003; 82947; 83036; 83735; 83880; 84439; 84443; 84484; 85025; 85610; 87468; 87469; 87478; 87484; 87798; 93005; 93306; 93880; 97161; 97166; 97530; 99285; J7120; Q9957; Q9967

== ENCOUNTER → 2024-11-19 00:06 | Outpatient (BNV) | payer MEDICAID, SELFPAY | PROVIDERS: Emergency Provider Emergency Medicine; Visit Provider Radiology Diagnostic Radiology | DX: R29.810 Facial weakness (principal) | CPT/HCPCS: 93880 ==

== ENCOUNTER 2024-11-19 02:34 | Outpatient (BNV) | payer MEDICAID, SELFPAY | END 2024-11-19 07:00 | PROVIDERS: Admitting Provider Nurse Practitioner Family; Emergency Provider Emergency Medicine; Visit Provider Internal Medicine | DX: I42.2 Other hypertrophic cardiomyopathy (principal); I34.81 Nonrheumatic mitral (valve) annulus calcification; I49.3 Ventricular premature depolarization | CPT/HCPCS: 93010; 93306 ==

== ENCOUNTER → 2024-11-19 02:34 | Outpatient (BNV) | payer MEDICAID, SELFPAY | PROVIDERS: Admitting Provider Nurse Practitioner Family; Emergency Provider Emergency Medicine; Visit Provider Psychiatry & Neurology Neurology | DX: I63.89 Other cerebral infarction (principal) | CPT/HCPCS: 99222 ==

== ENCOUNTER → 2024-11-19 02:34 | Outpatient (BNV) | payer MEDICAID, SELFPAY | PROVIDERS: Admitting Provider Nurse Practitioner Family; Emergency Provider Emergency Medicine; Visit Provider Internal Medicine | DX: I63.89 Other cerebral infarction (principal) | CPT/HCPCS: 99239; 99499 ==